=== PATIENT | male | born 1990 | race Caucasian/White ===

== ENCOUNTER 2017-07-07 13:36 | Emergency (ER) | payer OTHER ==
[2017-07-07 14:09] VITALS: BP 150/82; PULSE 95; RESP 18; TEMP 98.2
--- NOTE | 2017-07-07 14:40 | XR ---
Third digit left hand HISTORY: Laceration 3 views of the third digit of left hand submitted. There is a suspected fracture dislocation at the proximal interphalangeal joint of the third digit of the left hand, comminuted punctate fracture fragments are suspected versus small foreign bodies, brenda ency in the soft tissues compatible with open fracture. IMPRESSION: Open fracture may be present. There is associated ligamentous disruption and possible for eign bodies versus fracture fragments.
[2017-07-07] MEDS ORDERED: CEPHALEXIN 500 MG CAP PO STA (15:23)
--- NOTE | 2017-07-07 15:41 | ED ---
General Adult HPI - General Source: patient, RN notes reviewed Mode of arrival: ambulatory Limitations: no limitations <Rodo Newton - Last Filed: 07/07/17 16:12> <Jose A Fuentes - Last Filed: 07/07/17 16:42> - General Chief complaint: Extremity Injury, Upper Stated complaint: Finger Lac Time Seen by Provider: 07/07/17 14:23 - History of Present Illness Initial comments: 27-year-old male presents to the emergency department for a chief complaint of left third digit injury. Patient states that about one hour ago he was using a air grinder saw to cut metal when he accidentally cut his third digit of the left hand. Patient states he is not able to extend his middle finger but has full sensation in the middle finger. Patient denies injuring any other part of his body. Patient denies falling or hitting his head. Patient states he is not sure when he had his last tetanus shot. Patient states she is ALLERGIC to penicillins but does not know his reaction as it was from when he was a kid. ( Rodo Newton) - Related Data Previous Rx's Medication Instructions Recorded Acetaminophen-Codeine 300-30mg 1 tab PO Q6H PRN #10 tablet 07/07/17 [Tylenol #3] Cephalexin [Keflex] 500 mg PO Q12HR #20 cap 07/07/17 Allergies Allergy/AdvReac Type Severity Reaction Status Date / Time Penicillins Allergy Unknown Verified 07/07/17 14:06 Review of Systems ROS Other: All systems not noted in ROS Statement are negative. <Rodo Newton - Last Filed: 07/07/17 16:12> ROS Other: All systems not noted in ROS Statement are negative. <Jose A Fuentes - Last Filed: 07/07/17 16:42> ROS Statement: Those systems with pertinent positive or pertinent negative responses have been documented in the HPI. Past Medical History Past Medical History: No Reported History History of Any Multi-Drug Resistant Organisms: None Reported Past Surgical History: No Surgical Hx Reported Past Psychological History: No Psychological Hx Reported Smoking Status: Heavy tobacco smoker Past Alcohol Use History: None Reported Past Drug Use History: None Reported <Rodo Newton - Last Filed: 07/07/17 16:12> General Exam Limitations: no limitations General appearance: alert, in no apparent distress Respiratory exam: Present: normal lung sounds bilaterally. Absent: respiratory distress, wheezes, rales, rhonchi, stridor Cardiovascular Exam: Present: regular rate, normal rhythm, normal heart sounds. Absent: systolic murmur, diastolic murmur, rubs, gallop, clicks Extremities exam: Present: tenderness (Tenderness to the third digit of the left hand), normal capillary refill (Refill less than 2 seconds in all digits of the left hand including the third digit. Radial pulse 2+ in the left hand.) , other (There is a 1.5 cm laceration extending the wet of the patient's PIP joint in the third digit of the left hand. The finger is held in full flexion from the PIP joint.). Absent: full ROM (Patient's third digit of his left hand is held in flexion.), pedal edema, joint swelling, calf tenderness <Rodo Netwon - Last Filed: 07/07/17 16:12> Course <Rodo Newton - Last Filed: 07/07/17 16:12> <Jose A Fuentes - Last Filed: 07/07/17 16:42> Vital Signs 07/07/17 14:06 Temperature 98.2 F Pulse Rate 95 Respiratory 18 Rate Blood Pressure 150/82 O2 Sat by Pulse 96 Oximetry - Reevaluation(s) Reevaluation #1: 07/07/17 16:41 I did personally do a [id number] evaluation the patient and did examine the patient's finger he does have evidence of a dorsal left middle finger PIP laceration with transection of the extensor tendon. This does appear to be into the joint. No active bleeding no formed by seen. I did review the x-rays also. I did discuss the case with Bush[facility] from [facility] patient will be treated initially here and will follow-up with Dr. Hua tomorrow. Patient does maintain sensory to the distal aspect of the phalanx as well as capillary refill. (Jose A Fuentes) Procedures <Rodo Newton - Last Filed: 07/07/17 16:12> <Jose A Fuentes - Last Filed: 07/07/17 16:42> - Procedures Initial comment: Body area: PIP of left third digit Laceration length: 1.5 cm cm Foreign bodies: no foreign bodies Tendon involvement: none Nerve involvement: none Vascular damage: no Anesthesia: Digital block Local anesthetic: 3 mL 1% lidocaine Preparation: Patient was prepped and draped in the usual sterile fashion. Irrigation solution: saline Irrigation method:sterile water jet lavage Skin closure:4-0 Ethilon using sterile technique Number of sutures: 4 Technique: interupted Dressing: antibiotic ointment/ gauze Patient tolerance: Patient tolerated the procedure well with no immediate complications. (Rodo Newton) Medical Decision Making <Rodo Newton - Last Filed: 07/07/17 16:12> <Jose A Fuentes - Last Filed: 07/07/17 16:42> - Medical Decision Making 27-year-old male presents to the emergency department for a chief complaint of laceration to the third digit of the left hand. Patient states this happened about an hour ago when he was using a air grinder saw. Patient's finger is held in full flexion and he is not able to extend his finger. Patient does have full sensation throughout his entire third digit including the distal phalanx. Capillary refill less than 2 seconds. Patient was given a tetanus and keflex in the emergency department. X-ray of the third digit of the left hand shows an open fracture at the proximal interphalangeal joint of the third digit. There is associated ligamentous disruption with possible foreign bodies versus fracture fragments. Patient's finger was numbed with a digital block. It was then straightened, lightly sutured, and splinted in extension. Dr. Fuentes talked with Dr. Hua's group and he will present there tomorrow. He will call to set up the appointment today. He will take Keflex as directed. He will return to the emergency department if he has any worsening symptoms. (Rodo Newton) Disposition Is patient prescribed a controlled substance at discharge?: No Time of Disposition: 16:16 <Rodo Newton - Last Filed: 07/07/17 16:12> <Jose A Fuentes - Last Filed: 07/07/17 16:42> Clinical Impression: Laceration Disposition: HOME SELF-CARE Condition: Good Instructions: Care For Your Stitches (ED), Laceration (ED) Additional Instructions: Please return to the emergency department if you have any worsening symptoms or began to feel numbness in middle finger. Follow-up with orthopedics tomorrow. You may use Motrin for pain relief and Tylenol 3 for breakthrough pain. If orthopedics does not remove the sutures please return in 10-14 days to have them removed. Prescriptions: Acetaminophen-Codeine 300-30mg [Tylenol #3] 1 tab PO Q6H PRN #10 tablet PRN Reason: Pain Cephalexin [Keflex] 500 mg PO Q12HR #20 cap Referrals: None,Stated [Primary Care Provider] - 1-2 days Pepe Hua, [Doctor of Osteopathic Medicine] - 1-2 days
[2017-07-07] MEDS ORDERED: DIPH,PERTUS(ACELL)TETVAC-LF 0.5 ML VIAL IM ONE (16:07)
== END 2017-07-07 16:33 | disposition home or self-care (01) ==
LOC: EC 13:36
DX: S61.213A Laceration without foreign body of left middle finger without damage to nail, initial encounter (principal); S62.613B Displaced fracture of proximal phalanx of left middle finger, initial encounter for open fracture; F17.200 Nicotine dependence, unspecified, uncomplicated; Z88.0 Allergy status to penicillin; Z23 Encounter for immunization; W45.8XXA Other foreign body or object entering through skin, initial encounter; Y93.89 Activity, other specified
CPT/HCPCS: 12001; 90471; 90715; 99283

== ENCOUNTER 2023-04-10 09:40 | Emergency (ER) | payer BC ==
[2023-04-10 10:09] VITALS: RESP 18; TEMP 98.1
[2023-04-10] MEDS ORDERED: FLUORESCEIN STRIPS 1 MG STRIP RIGHT EYE ONE (10:28)
[2023-04-10] MEDS ORDERED: TOBRAMYCIN 0.3% OPHTH DROPS 5 ML BTL RIGHT EYE STA (10:46)
--- NOTE | 2023-04-10 10:47 | ED ---
Eye Problem HPI - General Chief complaint: Eye Problems Stated complaint: R eye pain Time Seen by Provider: 04/10/23 10:01 Source: patient, RN notes reviewed Mode of arrival: ambulatory Limitations: no limitations - History of Present Illness Initial comments: 33-year-old male presents emergency from chief complaint right eye irritation. Patient states started a couple days. Patient states he does not remember getting in his eye states that is irritated, swelling of his upper eyelid. Patient denies any difficulty seeing denies any contact lens wearing. - Related Data Previous Rx's Medication Instructions Recorded Acetaminophen-Codeine 300-30mg 1 tab PO Q6H PRN #10 tablet 07/07/17 [Tylenol #3] Cephalexin [Keflex] 500 mg PO Q12HR #20 cap 07/07/17 Allergies Allergy/AdvReac Type Severity Reaction Status Date / Time Penicillins Allergy Unknown Verified 04/10/23 09:53 Review of Systems ROS Statement: Those systems with pertinent positive or pertinent negative responses have been documented in the HPI. ROS Other: All systems not noted in ROS Statement are negative. Past Medical History Past Medical History: No Reported History History of Any Multi-Drug Resistant Organisms: None Reported Past Surgical History: No Surgical Hx Reported Past Psychological History: No Psychological Hx Reported Smoking Status: Current every day smoker Past Alcohol Use History: Rare Past Drug Use History: None Reported General Exam Limitations: no limitations General appearance: alert, in no apparent distress Head exam: Present: atraumatic, normocephalic, normal inspection Eye exam: Present: PERRL, EOMI, conjunctival injection (Mild right), periorbital swelling (Right upper eyelid swelling). Absent: normal appearance, scleral icterus Pupils: Present: other (Patient had relief with proparacaine, there is small pinpoint defect with uptake and the 12 o'clock position with no foreign body noted) ENT exam: Present: normal exam, mucous membranes moist Neck exam: Present: normal inspection. Absent: tenderness, meningismus, lymphadenopathy Neurological exam: Present: alert Skin exam: Present: warm, dry, intact, normal color. Absent: rash Course Vital Signs 04/10/23 04/10/23 09:48 11:16 Temperature 98.1 F 98.1 F Pulse Rate 77 72 Respiratory 18 18 Rate Blood Pressure 161/96 137/76 O2 Sat by Pulse 98 99 Oximetry Medical Decision Making - Medical Decision Making Was pt. sent in by a medical professional or institution (DEMARCUS Ibarra, PRODUCTION BROACHING MACHINE OPERATOR, urgent care, hospital, or alf...) When possible be specific @ -No Did you speak to anyone other than the patient for history (EMS, parent, family, police, friend...)? What history was obtained from this source @ -No Did you review nursing and triage notes (agree or disagree)? Why? @ -I reviewed and agree with nursing and triage notes Were old charts reviewed (outside hosp., previous admission, EMS record, old EKG, old radiological studies, urgent care reports/EKG's, alf records)? Report findings @ -No old charts were reviewed Differential Diagnosis (chest pain, altered mental status, abdominal pain women, abdominal pain men, vaginal bleeding, weakness, fever, dyspnea, syncope, headache, dizziness, GI bleed, back pain, seizure, CVA, palpatations, mental health, musculoskeletal)? @ -Corneal abrasion, foreign body, blepharitis, conjunctivitis EKG interpreted by me (3pts min.). @ -None X-rays interpreted by me (1pt min.). @ -None done CT interpreted by me (1pt min.). @ -None done U/S interpreted by me (1pt. min.). @ -None done What testing was considered but not performed or refused? (CT, X-rays, U/S, labs)? Why? @ -None What meds were considered but not given or refused? Why? @ -None Did you discuss the management of the patient with other professionals (professionals i.e. DEMARCUS Ibarra, PRODUCTION BROACHING MACHINE OPERATOR, lab, RT, psych nurse, social work assistant, quality and reliability engineer, teacher, chief digital officer, family preservation caseworker)? Give summary @ -No Was smoking cessation discussed for >3mins.? @ -No Was critical care preformed (if so, how long)? @ -No Were there social determinants of health that impacted care today? How? (Homelessness, low income, unemployed, alcoholism, drug addiction, transportation, low edu. Level, literacy, decrease access to med. care, [facility], rehab)? @ -No Was there de-escalation of care discussed even if they declined (Discuss DNR or withdrawal of care, Hospice)? DNR status @ -No What co-morbidities impacted this encounter? (DM, HTN, Smoking, COPD, CAD, Cancer, CVA, ARF, Chemo, Hep., AIDS, mental health diagnosis, sleep apnea, morbid obesity)? @ -None Was patient admitted / discharged? Hospital course, mention meds given and route, prescriptions, significant lab abnormalities, going to OR and other pertinent info. @ -[Discharge patient had a corneal defect, abrasion noted without evidence of foreign body patient's tetanus is up-to-date was started on Tobrex eyedrops will follow-up with ophthalmology on Wednesday. Return parameters were discussed. Undiagnosed new problem with uncertain prognosis? @ -No Drug Therapy requiring intensive monitoring for toxicity (Heparin, Nitro, Insulin, Cardizem)? @ -No Were any procedures done? @ -No Diagnosis/symptom? @ -Corneal abrasion right Acute, or Chronic, or Acute on Chronic? @ -Acute Uncomplicated (without systemic symptoms) or Complicated (systemic symptoms)? @ -Uncomplicated Side effects of treatment? @ -No Exacerbation, Progression, or Severe Exacerbation? @ -No Poses a threat to life or bodily function? How? (Chest pain, [place], [place], pneumonia, PE, COPD, DKA, ARF, appy, cholecystitis, CVA, Diverticulitis, Homicidal, Suicidal, threat to staff... and all critical care pts) @ -No Disposition Clinical Impression: Corneal abrasion, right Disposition: HOME SELF-CARE Condition: Stable Instructions (If sedation given, give patient instructions): Corneal Abrasion (ED) Additional Instructions: Use eyedrops 1 drop every 4 hours for 5 days. Please return to the Emergency Department if symptoms worsen or any other concerns. Is patient prescribed a controlled substance at d/c from ED?: No Referrals: None,Stated [Primary Care Provider] - 1-2 days Alvaro Lawrence MD [STAFF PHYSICIAN] - 1-2 days Time of Disposition: 10:46
[2023-04-10 11:21] VITALS: BP 137/76; PULSE 72
== END 2023-04-10 11:19 | disposition home or self-care (01) ==
LOC: EC 09:40
DX: S05.01XA Injury of conjunctiva and corneal abrasion without foreign body, right eye, initial encounter (principal); F17.200 Nicotine dependence, unspecified, uncomplicated; Z88.0 Allergy status to penicillin; X58.XXXA Exposure to other specified factors, initial encounter
CPT/HCPCS: 99283